=== PATIENT | female | born 1940 | race Caucasian/White ===

== ENCOUNTER 2023-03-11 09:35 | Emergency (ER) | payer MEDICARE, BC ==
[~2023-03-11] VITALS: Ht 152.4 cm; Wt 55.8 kg
[2023-03-11] MEDS ORDERED: FEXOFENADINE H180 M1 PO (10:16)
[2023-03-11] MEDS ORDERED: BENICAR20 MG PO (10:16)
[2023-03-11] MEDS ORDERED: CALCIUM CARBONATE PO (10:17)
[2023-03-11] MEDS ORDERED: CITRACAL + D E1 EACH PO (10:19)
[2023-03-11] MEDS ORDERED: CLONAZEPAM0.5 M1 PO (10:20)
[2023-03-11] MEDS ORDERED: COLACE100 M1 PO (10:20)
[2023-03-11] MEDS ORDERED: VITAMIN D350 MC1 PO (10:21)
[2023-03-11] MEDS ORDERED: ZETIA10 M1 PO (10:22)
[2023-03-11] MEDS ORDERED: [UNRECOGNIZED DRUG - OTHER] PO (10:22)
[2023-03-11] MEDS ORDERED: FISH OIL 1,4001 EACH PO (10:23)
[2023-03-11] MEDS ORDERED: PROTONIX20 M1 PO (10:24)
[2023-03-11] MEDS ORDERED: PRESERVISION A1 EACH PO (10:24)
[2023-03-11] MEDS ORDERED: MYSOLINE250 M1 PO (10:25)
[2023-03-11] MEDS ORDERED: PROPRANOLOL HY160 MG PO (10:25)
[2023-03-11] MEDS ORDERED: MELATONIN3 M3 PO (10:26)
[2023-03-11] MEDS ORDERED: ACETAMINOPHEN500 M5 PO (10:26)
[2023-03-11 10:37] LABS: BASO # 0.03 K/mm3 (0.02-0.10); EOS # 0.12 K/mm3 (0.04-0.40); EOS % 1.9 % (1.0-5.0); HEMATOCRIT 35.4 % (37.0-47.0); HEMOGLOBIN 11.5 g/dL (12.5-16.0); LYMPH# 0.81 K/mm3 (1.50-4.00); MEAN CELL VOLUME 96 fl (78-100); MEAN CORPUSCULAR HEMOGLOBIN 31 pg (27-31); MEAN CORPUSCULAR HGB CONC 33 g/dL (33-37); MEAN PLATELET VOLUME 9.1 fl (7.4-10.4); MONO # 0.58 K/mm3 (0.20-0.80); NEU # 4.73 K/mm3 (1.40-6.50); PLATELET COUNT 162 K/mm3 (130-400); RED BLOOD COUNT 3.69 M/mm3 (4.10-5.30); RED CELL DISTRIBUTION WIDTH 12.8 % (11.5-14.5); WHITE BLOOD COUNT 6.3 K/mm3 (4.8-10.8)
[2023-03-11 10:44] LABS: ALBUMIN 3.9 g/dL (3.4-4.8)
[2023-03-11 10:45] LABS: CALCIUM 9.4 mg/dL (8.3-10.5)
[2023-03-11 10:46] LABS: TOTAL PROTEIN 6.5 g/dL (6.2-8.1)
[2023-03-11 10:48] LABS: TOTAL BILIRUBIN 0.5 mg/dL (0.2-1.2)
[2023-03-11 12:03] LABS: URINE COLOR YELLOW
[2023-03-11 12:04] LABS: PH-URINE 7.5 (5.0 - 8.0); URINE APPEARANCE CLOUDY; URINE BILIRUBIN NEGATIVE (NEGATIVE); URINE BLOOD NEGATIVE (NEGATIVE); URINE GLUCOSE NEGATIVE (NEGATIVE); URINE KETONE NEGATIVE (NEGATIVE); URINE LEUKOCYTE ESTERASE TRACE (NEGATIVE); URINE MUCUS PRESENT (NOT PRESENT); URINE NITRATE POSITIVE (NEGATIVE); URINE PROTEIN(semi-quant) TRACE (NEGATIVE); URINE UROBILINOGEN NORMAL (NORMAL)
[2023-03-11] MEDS ORDERED: MACROBID 100 M100 MG PO (12:29)
[2023-03-11] MEDS ORDERED: TIZANIDINE HYDRO2 M1 PO (12:29)
[2023-03-11] MEDS ORDERED: LIDODERM1 EACH TP (12:29)
[2023-03-11 12:45] VITALS: BP 129/63
== END 2023-03-11 13:11 | disposition home or self-care (01) ==
LOC: ED 09:35
PROVIDERS: Physician Assistant
DX: M54.40 Lumbago with sciatica, unspecified side (principal); N39.0 Urinary tract infection, site not specified; M43.16 Spondylolisthesis, lumbar region; Z88.0 Allergy status to penicillin
CPT/HCPCS: J1885